=== PATIENT | male | born 2000 | race Caucasian/White ===

== ENCOUNTER 2023-08-23 07:22 | Emergency (ER) | payer BC ==
[~2023-08-23] VITALS: Ht 193 cm; Wt 117.9 kg
[2023-08-23 07:23] VITALS: BP 149/91; PULSE 69; RESP 16
[2023-08-23] MEDS ORDERED: BACITRACIN 1 EACH PACKET TP ONE (08:19)
[2023-08-23] MEDS: CEPHALEXIN 500 MG CAPSULE PO ONE (08:24)
[2023-08-23] MEDS: IBUPROFEN 800 MG TAB PO ONE (08:25)
[2023-08-23] MEDS ORDERED: CEPH500B PO (08:27)
[2023-08-23] MEDS ORDERED: IBUP-2077 PO (08:27)
== END 2023-08-23 08:36 | disposition home or self-care (01) ==
LOC: EDH 07:22
DX: S61.210A Laceration without foreign body of right index finger without damage to nail, initial encounter (principal); S67.190A Crushing injury of right index finger, initial encounter; Z98.890 Other specified postprocedural states; X58.XXXA Exposure to other specified factors, initial encounter; Y93.89 Activity, other specified; Y92.89 Other specified places as the place of occurrence of the external cause; Y99.8 Other external cause status
CPT/HCPCS: 29130